=== PATIENT | female | born 1985 | race Caucasian/White ===

== ENCOUNTER 2020-05-06 14:17 | Emergency (ER) | payer OTHER ==
[2020-05-06 14:25] VITALS: BP 124/94
--- NOTE | 2020-05-06 14:31 | ED Physician Documentation ---
PD HPI UPPER EXT INJURY - Stated complaint Stated Complaint: RIGHT PINKY LAC - Chief complaint Chief Complaint: Laceration - History obtained from History obtained from: Patient - History of Present Illness Location: Right, Finger (tip of little finger avulsion and she could not get the bleeding to stop.) Timing - onset: Today Timing - details: Abrupt onset, Still present Associated symptoms: No: Weakness, Numbness, Swelling Similar symptoms before: Has not had sx before Recently seen: Not recently seen Review of Systems Constitutional: denies: Fever, Chills Nose: denies: Rhinorrhea / runny nose, Congestion Throat: denies: Sore throat Respiratory: denies: Cough Skin: reports: Laceration (s) Neurologic: denies: Focal weakness, Numbness PD PAST MEDICAL HISTORY - Past Medical History Past Medical History: No - Allergies Allergies/Adverse Reactions: Allergies Allergy/AdvReac Type Severity Reaction Status Date / Time No Known Drug Allergies Allergy Verified 05/06/20 14:22 PD ED PE NORMAL - Vitals Vital signs reviewed: Yes - General General: Alert and oriented X 3, No acute distress, Well developed/nourished - Derm Derm: Normal color, Warm and dry - Extremities Extremities: Other (right little finger tip with avulsion not at nailbed of partial thickness skin 1 x 1/2 cm. Without FB but has ongoing oozing capillary bleeding. ) - Neuro Neuro: No motor deficit, No sensory deficit Results - Vitals Vitals: Vital Signs - 24 hr 05/06/20 14:22 Temperature 36.2 C L Heart Rate 73 Respiratory 16 Rate Blood Pressure 124/94 H O2 Saturation 100 Oxygen O2 Source Room air PD MEDICAL DECISION MAKING - ED course Complexity details: considered differential (LET applied and area got numb. Monsels solution then dermabond applied to stop bleeding and seal over the area. No bleeding. Pressure dressing applied. ), d/w patient Departure - Departure Disposition: 01 Home, Self Care Clinical Impression: Avulsion of finger tip Qualifiers: Encounter type: initial encounter Qualified Code(s): S61.209A - Unspecified open wound of unspecified finger without damage to nail, initial encounter Condition: Stable Record reviewed to determine appropriate education?: Yes Instructions: ED Avulsion Dermal Comments: Leave the initial wrap on the fingertip for a day or so. At that point you can start cleaning it with regular soap and water and apply ointment and Band-Aids. It should be stopped bleeding at that point. I would anticipate it healing in over 7 to 10 days. Recheck if infection. Tylenol or ibuprofen if needed for pains. Discharge Date/Time: 05/06/20 15:28
[2020-05-06] MEDS ORDERED: LIDOCAINE-EPINEPH-TETRACAINE 3 ML SYRINGE TOP STA (14:42)
== END 2020-05-06 15:28 | disposition home or self-care (01) ==
LOC: ED 14:17
DX: S61.206A Unspecified open wound of right little finger without damage to nail, initial encounter (principal); W26.0XXA Contact with knife, initial encounter
CPT/HCPCS: 99282

== ENCOUNTER 2021-04-14 23:31 | Emergency (ER) | payer OTHER ==
[2021-04-14 23:49] VITALS: BP 137/83
--- NOTE | 2021-04-15 00:29 | ED Physician Documentation ---
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 Patient states she woke up around 6:30pm and had the urge to go to the bathroom. She had about 5 small fully formed stools, one after another, then a watery stool without blood in it. during that time patient experienced warm flashes, nausea, and dizziness. She reports that she has been extremely fatigued throughout this , has had little appetite, and has baseline anxiety and nausea "for the past 5 years" , but denies worsening recently. denies urinary sx, vaginal bleeding, fever, chills, back pain, abdominal pain. symptoms have improved in the ED. Review of Systems Ten Systems: 10 systems reviewed and negative Constitutional: reports: Myalgias, Fatigue, Sweats, Other (hot flashes). denies: Fever, Chills Nose: denies: Rhinorrhea / runny nose, Congestion Throat: denies: Sore throat Cardiac: denies: Chest pain / pressure Respiratory: denies: Dyspnea, Cough GI: reports: Nausea, Diarrhea. denies: Abdominal Pain, Vomiting, Constipation, Bloody / black stool : denies: Dysuria, Frequency, Hematuria, Vaginal bleeding Musculoskeletal: denies: Back pain PD PAST MEDICAL HISTORY - Past Medical History Past Medical History: Yes Cardiovascular: None Respiratory: None Neuro: None Endocrine/Autoimmune: HyPOthyroidism GI: None AUTO DRIVER: None : None HEENT: None Psych: None Musculoskeletal: None Derm: None - Past Surgical History Past Surgical History: Yes - Allergies Allergies/Adverse Reactions: Allergies Allergy/AdvReac Type Severity Reaction Status Date / Time beclomethasone Allergy Respiratory Verified 04/14/21 23:46 [From Beconase AQ] - Social History Does the pt smoke?: No Smoking Status: Never smoker Does the pt drink ETOH?: Yes Does the pt have substance abuse?: Yes - Immunizations Immunizations are current?: Yes PD ED PE NORMAL - Vitals Vital signs reviewed: Yes - General General: Alert and oriented X 3, No acute distress, Well developed/nourished - HEENT HEENT: Atraumatic, PERRL, EOMI, Moist mucous membranes, Pharynx benign - Neck Neck: Supple, no meningeal sign - Cardiac Cardiac: RRR - Respiratory Respiratory: No respiratory distress, Clear bilaterally - Abdomen Abdomen: Non tender, Non distended - Back Back: No CVA TTP - Derm Derm: Normal color, Warm and dry - Extremities Extremities: No deformity - Neuro Neuro: Alert and oriented X 3, No motor deficit, No sensory deficit - Psych Psych: Normal mood, Normal affect Results - Vitals Vitals: Vital Signs - 24 hr 04/14/21 23:46 Temperature 36.2 C L Heart Rate 82 Respiratory 16 Rate Blood Pressure 137/83 H O2 Saturation 98 Oxygen O2 Source Room air PD MEDICAL DECISION MAKING - ED course ED course: FHR 162 on bedside POCUS. patient states her symptoms have resolved. 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 covid test sent and return precautions given. Departure - Departure Disposition: Home, Self Care Clinical Impression: Loose stools, Nausea, Dizziness, Hot flashes Condition: Stable Instructions: Diarrhea Comments: You were seen in the emergency department for evaluation of loose stool, dizziness, nausea, hot flashes happening this evening. Your vital signs and exam were normal. An ultrasound was performed of your and the heart rate was 161 which is in a healthy range. A COVID test was sent which will result in 2 to 3 days. You should quarantine at home until that time. Please return to the emergency department if you have new or worsening symptoms or other concerns prior to following up with your [employer]. Make sure that you speak to them about your borderline hypothyroidism since they will likely plan to do thyroid function testing while in the 1st trimester.
== END 2021-04-15 00:38 | disposition home or self-care (01) ==
LOC: ED 23:31
DX: O99.891 Other specified diseases and conditions complicating pregnancy (principal); R19.7 Diarrhea, unspecified; R42 Dizziness and giddiness; O21.0 Mild hyperemesis gravidarum; O99.281 Endocrine, nutritional and metabolic diseases complicating pregnancy, first trimester; E03.9 Hypothyroidism, unspecified; O09.511 Supervision of elderly primigravida, first trimester; Z3A.09 9 weeks gestation of pregnancy; Z20.822 Contact with and (suspected) exposure to COVID-19
CPT/HCPCS: 99282; 99283

== ENCOUNTER 2022-04-02 06:58 | Outpatient (CLI) | payer OTHER ==
--- NOTE | 2022-04-02 14:18 | MRI Report ---
PROCEDURE: MRI brain without contrast INDICATIONS: MIGRAINE TECHNIQUE: Noncontrast axial T1 spin echo, axial T2 fast spin echo, sagittal and axial FLAIR, coronal T2 fast sp in echo, axial gradient echo, axial diffusion and ADC through the brain. COMPARISON: None. FINDINGS: Image quality: Excellent. CSF Spaces: Basal cisterns are patent. No extra-axial fluid collections. Ventricles are normal in size and shape. Brain: No intracranial masses or hemorrhage. Barron/white matter interface is normal. Brainstem appe ars normal. Diffusion-weighted images demonstrate no acute ischemic insult. No chronic ischemic ins ults. Normal intravascular flow voids are present. Skull and face: Calvarium has normal marrow signal. Orbits appear normal. Sinuses: Sinuses and mastoids are clear. IMPRESSION: Normal MRI of the brain Reviewed by: Carter Oneill MD on 04/02/2022 1:17 PM [place] Approved by: Carter Oneill MD on 04/02/2022 1:17 PM [facility] Station ID: [id number]
== END 2022-04-02 06:59 | disposition home or self-care (01) ==
LOC: DI 06:58
PROVIDERS: ATTEND Physician Assistant
DX: G43.909 Migraine, unspecified, not intractable, without status migrainosus (principal)

== ENCOUNTER 2022-06-03 08:00 | Outpatient (CLI) | payer OTHER ==
[2022-06-03 22:24] LABS: BACTERIAL VAGINOSIS DNA NEGATIVE (NEGATIVE)
[2022-06-03 22:25] LABS: CANDIDA GLABRATA DNA NEGATIVE (NEGATIVE); CANDIDA GROUP DNA NEGATIVE (NEGATIVE); CANDIDA KRUSEI DNA NEGATIVE (NEGATIVE); TRICHOMONAS VAGINALIS DNA NEGATIVE (NEGATIVE)
== END 2022-06-03 23:59 | disposition home or self-care (01) ==
LOC: LAB 08:00
PROVIDERS: ATTEND Nurse Practitioner
DX: N89.8 Other specified noninflammatory disorders of vagina (principal)
CPT/HCPCS: 81514

== ENCOUNTER 2022-06-29 13:08 | Outpatient (CLI) | payer OTHER ==
--- NOTE | 2022-06-29 15:56 | Ultrasound Report ---
PROCEDURE: Pelvic w/Transvaginal INDICATIONS: FEMALE PELVIC PAIN TECHNIQUE: Real-time scanning was performed of the pelvic organs, with image documentation. Additional endovagi nal scanning was necessary due to incomplete visualization of the adnexal and endometrial structures by transabdominal scanning. COMPARISON: None. FINDINGS: Uterus: Uterus is anteverted and normal in size at 7.95 x 2.85 x 5.04 cm. The myometrium is homogen eous. The endometrium measures 3.3 mm in combined thickness. Ovaries: The right ovary measures 3.3 x 1.9 x 1.3 cm, with a calculated ovarian volume of 4 cc. The left ovary measures 2.3 x 2.2 x 1.4 cm, with a calculated ovarian volume of 4 cc. The ovaries have a normal sonographic appearance. Less than 12 follicles can be seen in each ovary. No adnexal steven s are seen. Other: No pathologic free abdominal or pelvic fluid. IMPRESSION: Unremarkable pelvic ultrasound. Reviewed by: Fortino Brand on 06/29/2022 3:54 PM PDT Approved by: Fortino Brand on 06/29/2022 3:54 PM PDT Station ID: [id number]
== END 2022-06-29 13:09 | disposition home or self-care (01) ==
LOC: DI 13:08
PROVIDERS: ATTEND Nurse Practitioner
DX: R10.2 Pelvic and perineal pain (principal)